=== PATIENT | male | born 1990 | race Caucasian/White ===

== ENCOUNTER 2016-10-08 22:25 | Emergency (ER) | payer SELFPAY ==
--- NOTE | 2016-10-08 23:19 | ED CLINICAL REPORT ---
Clinical Report - Physicians/Mid Levels [facility] [address] [place] [address] 10/08/2016 22:27 Patient: ASHLEY MELTON Time Seen: 22:41; initial patient contact. Arrived- By private vehicle. Historian- patient. HISTORY OF PRESENT ILLNESS Chief Complaint: Chief Complaint- Patient struck his left thumb at work with a hammer about five hours ago. He reports that his hand is throbbing and he was unable to sleep so he came in to be seen.). and Injury to left hand. The injury happened today. The patient sustained a direct blow. Occurred at home. Patient is experiencing moderate pain. No other injury. REVIEW OF SYSTEMS The patient has had swelling, and weakness. All systems otherwise negative, except as recorded above. PAST HISTORY See nurses notes. The patient's dominant hand is the right. Tetanus immunization status is up-to-date. Problems: Tetanus Status. Abscess. Allergic Rhinitis. URI. Immunizations. Sinus Problems. Bipolar Disorder. Additional Surgeries: no known surgeries. Medications: None. Allergies: No Known Drug Allergy. SOCIAL HISTORY Smoker- current status unknown (cigarette). ADDITIONAL NOTES The nursing notes have been reviewed with agreement regarding the chief complaint, HPI, ROS, PMH and patient medications and allergies. PHYSICAL EXAM Vital Signs: 10/08/2016 22:34 BP: 133/76. HR: 74. RR: 20. O2 saturation: 97%. Temp: 98.3 F. Pain level now: 8/10. Have been reviewed. Appearance: Alert. Oriented X3. No acute distress. Extremities: No signs of infection present in the upper extremities. No upper extremity bony tenderness. Left thumb: mild tenderness and swelling of the proximal phalanx, distal phalanx and nail bed. Limited movement secondary to pain (diminished flexion). Neurovascular intact distally. No subungual hematoma. Extremities otherwise negative. Neuro, Vascular and Tendons: Vascular status intact. Sensation intact. Motor intact. Tendon function intact. LABS, X-RAYS, AND EKG X-Rays: Left digit(s) negative. The X-rays were independently viewed by me, interpreted by the radiologist and discussed with the radiologist. Lt UE Digits X-ray: No fracture. The X-rays were independently viewed by me and interpreted contemporaneously by me. Interpretation time: 23:23. PROGRESS AND PROCEDURES Course of Care: Patient is stable. Physical exam findings are improved. Symptoms better. CLINICAL IMPRESSION Crush injury to the left thumb. INSTRUCTIONS Apply ice for 10 minutes three times a day for two days. Elevate affected areas above chest level. Limit use of your hand. No dietary restrictions. OTC Medications: Motrin IB 200 mg (available over the counter): take 3 orally every 8 hours as needed for pain, stiffness or swelling Follow-up: Follow up with your doctor if not better. Understanding of the discharge instructions verbalized by patient. (Electronically signed by Eliz Bianchi PA-C 10/08/2016 23:24)
--- NOTE | 2016-10-08 23:19 | ED NURSING NOTES ---
Clinical Report - Nurses [facility] [address] [place] [address] 10/08/2016 22:27 Patient: ASHLEY MELTON TRIAGE Triage time 22:34 Oct 08 2016. Acuity: LEVEL 4. Chief Complaint: INJURY TO THE LEFT THUMB. SEPSIS SCREEN: Sepsis Screen: negative. Negative (no infection suspected/documented). ALPA COMA SCORE: Alpa Coma Scale: 15- eyes open spontaneously (4); best verbal response- oriented x 4 (5); best motor response- obeys commands (6). --22:37 Isatu Wells 22:34 10/08/16. BP: 133/76. HR: 74. RR: 20. O2 saturation: 97%. Temp: 98.3 F (oral). Pain level now: 12/29. --22:37 Isatu Wells. Weight: 58.9 kg stated. Height/Length: 68 inches Per Patient. BMI: 19.7. --22:34 Isatu Wells. Medications None. --22:36 Isatu Wells. Allergies No Known Drug Allergy. --22:36 Isatu Wells. Medication/allergy information source: the patient. --22:37 Isatu Wells. History Arrived by private vehicle. Historian: patient. Unaccompanied. Primary physician ([facility]). This occurred just prior to arrival. Occurred at work. Mechanism of injury: a single blow (hammer). ( Patient struck his left thumb at work with a hammer about five hours ago. He reports that his hand is throbbing and he was unable to sleep so he came in to be seen.). 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 PAST MEDICAL HX: Tetanus status: up-to-date. SOCIAL HX: Heavy tobacco smoker- less than 1 pack per day. History of drug use: marijuana. No alcohol use. No infectious disease exposure. ABUSE ASSESSMENT: No report of abuse. FALL RISK ASSESSMENT: Fall risk assessment completed. No fall risk identified. NUTRITIONAL RISK ASSESSMENT: The nutritional risk assessment revealed no deficiencies. FUNCTIONAL ASSESSMENT: Functional assessment: no impairments noted. LEARNING NEEDS ASSESSMENT: The learning needs assessment revealed no barriers. SKIN INTEGRITY ASSESSMENT: Skin integrity risk assessment completed. No skin integrity risk identified. --22:37 Isatu Wells. PROBLEMS: Tetanus Status. Abscess. Allergic Rhinitis. URI. Immunizations. Sinus Problems. Bipolar Disorder. --22:36 Isatu Wells. ADDITIONAL SURGERIES: no known surgeries. Interventions ID band on patient. To treatment room. --22:37 Isatu Wells. PHYSICAL ASSESSMENT 22:37 10/08/16. GENERAL / NEURO / PSYCH: Oriented X 4. Alert. Appears in no acute distress. EXTREMITIES: Capillary refill is less than 2 seconds in the extremities. Extremity pulses are within normal limits. Left hand: tenderness, swelling and erythema. SKIN: Skin intact. Skin is warm and dry. --22:38 Isatu Wells. NURSING PROGRESS NOTES 22:10/08/16. Cold pack applied. Extremity elevated. Reassurance given to the patient. Two patient identifiers checked. Call light placed in reach. Side rails up x 1. Bed placed in lowest position. Brakes of bed on. Patient ready for evaluation- chart flagged and ED physician notified. --22:38 Isatu Wells 22:55 10/08/16. ( Patient declining tetanus shot. Patient educated on risks of tetanus.). --22:55 Isatu Wells. DISPOSITION / DISCHARGE 23:10/08/16. Condition at departure: stable. The goals identified in the patient's plan of care were met. No learning barriers present. Discharge instructions provided and reviewed with the patient. Reviewed medication(s) side effects, precautions, dosing and course information. Prescription(s) given to the patient. Reviewed wound care instructions. Patient verbalized understanding. Written instructions provided in Czech. ( Ice and elevate your hand. Follow up with your PCP if not better in one week. Take anti-inflammatory as needed. Patient verbalized understanding and had no additional questions at this time.). The patient was discharged by the physician. He was discharged home and accompanied by machinist job setter. He left the Emergency Department ambulatory and via private vehicle. Patient driving. FALL RISK ASSESSMENT: Fall risk assessment completed. No fall risk identified. --23:26 Isatu Wells 23:24 10/08/16. BP: deferred. HR: deferred. RR: deferred. O2 saturation: deferred. Temp: deferred. Pain level now: 12/29. --23:26 Isatu Wells. Locked/Released at 10/09/2016 0:13 by Isatu Wells,
--- NOTE | 2016-10-08 23:19 | ED ORDER SUMMARY ---
..... Patient: ASHLEY MELTON OrderSheet [facility] VisitID: [id number] [address] [place] [address] 26y, M Registration Date/Time: 10/08/2016 ORDER SHEET Weight: 58.9 kg (stated) Allergies: No Known Drug Allergy GENERAL ORDERS: Finger Left (thumb) (left thumb injury) Urgent (22:41 10/08/2016 Griffin SANTOS) (Ack 22:47 AMcQuoid ER Tech1) (23:01 Alina Gilliland) MEDICATION ORDERS: IV FLUIDS: ORDER SHEET NOTES: [Electronically signed by Eliz Bianchi PA-C (23:24 10/08/2016)] [Electronically signed by Isatu Wells (00:13 10/09/2016)] [Electronically locked/signed by Isatu Wells (00:13 10/09/2016)]
--- NOTE | 2016-10-08 23:19 | ED ORDER SUMMARY ---
..... Patient: ASHLEY MELTON OrderSheet [facility] VisitID: [id number] [address] [place] [address] 26y, M Registration Date/Time: 10/08/2016 ORDER SHEET Weight: 58.9 kg (stated) Allergies: No Known Drug Allergy GENERAL ORDERS: Finger Left (thumb) (left thumb injury) Urgent (22:41 10/08/2016 Griffin SANTOS) (Ack 22:47 AMcQuoid ER Tech1) (23:01 Alina Gilliland) MEDICATION ORDERS: IV FLUIDS: ORDER SHEET NOTES: [Electronically signed by Eliz Bianchi PA-C (23:24 10/08/2016)] [Electronically signed by Isatu Wells (00:13 10/09/2016)] [Electronically locked/signed by Isatu Wells (00:13 10/09/2016)]
--- NOTE | 2016-10-08 23:19 | ED NURSING NOTES ---
Clinical Report - Nurses [facility] [address] [place] [address] 10/08/2016 22:27 Patient: ASHLEY MELTON TRIAGE Triage time 22:34 Oct 08 2016. Acuity: LEVEL 4. Chief Complaint: INJURY TO THE LEFT THUMB. SEPSIS SCREEN: Sepsis Screen: negative. Negative (no infection suspected/documented). ALPA COMA SCORE: Alpa Coma Scale: 15- eyes open spontaneously (4); best verbal response- oriented x 4 (5); best motor response- obeys commands (6). --22:37 Isatu Wells 22:34 10/08/16. BP: 133/76. HR: 74. RR: 20. O2 saturation: 97%. Temp: 98.3 F (oral). Pain level now: 12/29. --22:37 Isatu Wells. Weight: 58.9 kg stated. Height/Length: 68 inches Per Patient. BMI: 19.7. --22:34 Isatu Wells. Medications None. --22:36 Isatu Wells. Allergies No Known Drug Allergy. --22:36 Isatu Wells. Medication/allergy information source: the patient. --22:37 Isatu Wells. History Arrived by private vehicle. Historian: patient. Unaccompanied. [facility] This occurred just prior to arrival. Occurred at work. Mechanism of injury: a single blow (hammer). ( Patient struck his left thumb at work with a hammer about five hours ago. He reports that his hand is throbbing and he was unable to sleep so he came in to be seen.). 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 PAST MEDICAL HX: Tetanus status: up-to-date. SOCIAL HX: Heavy tobacco smoker- less than 1 pack per day. History of drug use: marijuana. No alcohol use. No infectious disease exposure. ABUSE ASSESSMENT: No report of abuse. FALL RISK ASSESSMENT: Fall risk assessment completed. No fall risk identified. NUTRITIONAL RISK ASSESSMENT: The nutritional risk assessment revealed no deficiencies. FUNCTIONAL ASSESSMENT: Functional assessment: no impairments noted. LEARNING NEEDS ASSESSMENT: The learning needs assessment revealed no barriers. SKIN INTEGRITY ASSESSMENT: Skin integrity risk assessment completed. No skin integrity risk identified. --22:37 Isatu Wells. PROBLEMS: Tetanus Status. Abscess. Allergic Rhinitis. URI. Immunizations. Sinus Problems. Bipolar Disorder. --22:36 Isatu Wells. ADDITIONAL SURGERIES: no known surgeries. Interventions ID band on patient. To treatment room. --22:37 Isatu Wells. PHYSICAL ASSESSMENT 22:37 10/08/16. GENERAL / NEURO / PSYCH: Oriented X 4. Alert. Appears in no acute distress. EXTREMITIES: Capillary refill is less than 2 seconds in the extremities. Extremity pulses are within normal limits. Left hand: tenderness, swelling and erythema. SKIN: Skin intact. Skin is warm and dry. --22:38 Isatu Wells. NURSING PROGRESS NOTES 22:10/08/16. Cold pack applied. Extremity elevated. Reassurance given to the patient. Two patient identifiers checked. Call light placed in reach. Side rails up x 1. Bed placed in lowest position. Brakes of bed on. Patient ready for evaluation- chart flagged and ED physician notified. --22:38 Isatu Wells 22:55 10/08/16. ( Patient declining tetanus shot. Patient educated on risks of tetanus.). --22:55 Isatu Wells. DISPOSITION / DISCHARGE 23:10/08/16. Condition at departure: stable. The goals identified in the patient's plan of care were met. No learning barriers present. Discharge instructions provided and reviewed with the patient. Reviewed medication(s) side effects, precautions, dosing and course information. Prescription(s) given to the patient. Reviewed wound care instructions. Patient verbalized understanding. Written instructions provided in Ukrainian. ( Ice and elevate your hand. Follow up with your PCP if not better in one week. Take anti-inflammatory as needed. Patient verbalized understanding and had no additional questions at this time.). The patient was discharged by the physician. He was discharged home and accompanied by sand operator. He left the Emergency Department ambulatory and via private vehicle. Patient driving. FALL RISK ASSESSMENT: Fall risk assessment completed. No fall risk identified. --23:26 Isatu Wells 23:24 10/08/16. BP: deferred. HR: deferred. RR: deferred. O2 saturation: deferred. Temp: deferred. Pain level now: 12/29. --23:26 Isatu Wells. Locked/Released at 10/09/2016 0:13 by Isatu Wells,
--- NOTE | 2016-10-08 23:19 | ED CLINICAL REPORT ---
Clinical Report - Physicians/Mid Levels [facility] [address] [place] [address] 10/08/2016 22:27 Patient: ASHLEY MELTON Time Seen: 22:41; initial patient contact. Arrived- By private vehicle. Historian- patient. HISTORY OF PRESENT ILLNESS Chief Complaint: Chief Complaint- Patient struck his left thumb at work with a hammer about five hours ago. He reports that his hand is throbbing and he was unable to sleep so he came in to be seen.). and Injury to left hand. The injury happened today. The patient sustained a direct blow. Occurred at home. Patient is experiencing moderate pain. No other injury. REVIEW OF SYSTEMS The patient has had swelling, and weakness. All systems otherwise negative, except as recorded above. PAST HISTORY See nurses notes. The patient's dominant hand is the right. Tetanus immunization status is up-to-date. Problems: Tetanus Status. Abscess. Allergic Rhinitis. URI. Immunizations. Sinus Problems. Bipolar Disorder. Additional Surgeries: no known surgeries. Medications: None. Allergies: No Known Drug Allergy. SOCIAL HISTORY Smoker- current status unknown (cigarette). ADDITIONAL NOTES The nursing notes have been reviewed with agreement regarding the chief complaint, HPI, ROS, PMH and patient medications and allergies. PHYSICAL EXAM Vital Signs: 10/08/2016 22:34 BP: 133/76. HR: 74. RR: 20. O2 saturation: 97%. Temp: 98.3 F. Pain level now: 8/10. Have been reviewed. Appearance: Alert. Oriented X3. No acute distress. Extremities: No signs of infection present in the upper extremities. No upper extremity bony tenderness. Left thumb: mild tenderness and swelling of the proximal phalanx, distal phalanx and nail bed. Limited movement secondary to pain (diminished flexion). Neurovascular intact distally. No subungual hematoma. Extremities otherwise negative. Neuro, Vascular and Tendons: Vascular status intact. Sensation intact. Motor intact. Tendon function intact. LABS, X-RAYS, AND EKG X-Rays: Left digit(s) negative. The X-rays were independently viewed by me, interpreted by the radiologist and discussed with the radiologist. Lt UE Digits X-ray: No fracture. The X-rays were independently viewed by me and interpreted contemporaneously by me. Interpretation time: 23:23. PROGRESS AND PROCEDURES Course of Care: Patient is stable. Physical exam findings are improved. Symptoms better. CLINICAL IMPRESSION Crush injury to the left thumb. INSTRUCTIONS Apply ice for 10 minutes three times a day for two days. Elevate affected areas above chest level. Limit use of your hand. No dietary restrictions. OTC Medications: Motrin IB 200 mg (available over the counter): take 3 orally every 8 hours as needed for pain, stiffness or swelling Follow-up: Follow up with your doctor if not better. Understanding of the discharge instructions verbalized by patient. (Electronically signed by Eliz Bianchi PA-C 10/08/2016 23:24)
--- NOTE | 2016-10-09 00:13 | ED MED RECONCILIATION SUMMARY ---
Patient: ASHLEY MELTON Medication Reconciliation Report [facility] VisitID: [id number] [address] [place] [address] 26y, M Registration Date/Time: 10/08/2016 Weight: 58.9 kg Height/Length: 68 in. BMI: 19.7 ALLERGIES: No Known Drug Allergy The patient's Home Medications are listed below: NONE. The source(s) of the original Home Medication information: patient The following Medications were given to the patient in the Emergency Department: None. The following Medications were prescribed to the patient: Motrin IB 200 mg (available over the counter): take 3 orally every 8 hours as needed for pain, stiffness or swelling -- Eliz Bianchi PA-C
--- NOTE | 2016-10-09 00:13 | ED MAR SUMMARY ---
..... Medication Administration Record [facility] [address] [place], [place] [id number] Patient: ASHLEY MELTON Hallie Visit ID: [id number] 26y, M Weight: 58.9 kg Height/Length: 68 in BMI: 19.7 ALLERGIES: No Known Drug Allergy
--- NOTE | 2016-10-09 00:13 | ED MAR SUMMARY ---
..... Medication Administration Record [facility] [address] [place], [place] [id number] Patient: ASHLEY MELTON Hallie Visit ID: [id number] 26y, M Weight: 58.9 kg Height/Length: 68 in BMI: 19.7 ALLERGIES: No Known Drug Allergy
--- NOTE | 2016-10-09 00:13 | ED MED RECONCILIATION SUMMARY ---
Patient: ASHLEY MELTON Medication Reconciliation Report [facility] VisitID: [id number] [address] [place] [address] 26y, M Registration Date/Time: 10/08/2016 Weight: 58.9 kg Height/Length: 68 in. BMI: 19.7 ALLERGIES: No Known Drug Allergy The patient's Home Medications are listed below: NONE. The source(s) of the original Home Medication information: patient The following Medications were given to the patient in the Emergency Department: None. The following Medications were prescribed to the patient: Motrin IB 200 mg (available over the counter): take 3 orally every 8 hours as needed for pain, stiffness or swelling -- Eliz Bianchi PA-C
--- NOTE | 2016-10-09 00:13 | ED DISCHARGE INSTRUCTIONS ---
Patient: ASHLEY MELTON General Instructions [facility] VisitID: [id number] [address] [place] [address] 26y, M Registration Date/Time: 10/08/2016 Crush injury to the left thumb. INSTRUCTIONS Apply ice for 10 minutes three times a day for two days. Elevate affected areas above chest level. Limit use of your hand. No dietary restrictions. OTC Medications: Motrin IB 200 mg (available over the counter): take 3 orally every 8 hours as needed for pain, stiffness or swelling Follow-up: Follow up with your doctor if not better. Understanding of the discharge instructions verbalized by patient. Limit use of your hand. (Electronically signed by Eliz Bianchi PA-C 10/08/2016 23:24)
--- NOTE | 2016-10-09 00:13 | ED DISCHARGE INSTRUCTIONS ---
Patient: ASHLEY MELTON General Instructions [facility] VisitID: [id number] [address] [place] [address] 26y, M Registration Date/Time: 10/08/2016 Crush injury to the left thumb. INSTRUCTIONS Apply ice for 10 minutes three times a day for two days. Elevate affected areas above chest level. Limit use of your hand. No dietary restrictions. OTC Medications: Motrin IB 200 mg (available over the counter): take 3 orally every 8 hours as needed for pain, stiffness or swelling Follow-up: Follow up with your doctor if not better. Understanding of the discharge instructions verbalized by patient. Limit use of your hand. (Electronically signed by Eliz Bianchi PA-C 10/08/2016 23:24)
--- NOTE | 2016-10-09 05:24 | DIAGNOSTIC IMAGING REPORT ---
PROCEDURE: XR FINGER - LEFT (thumb) INDICATION: TRAUMA/INJURY TECHNIQUE: Three views. COMPARISON: None. FINDINGS: Osseous structures and joint spaces are normal. IMPRESSION: 1. Normal left thumb.
--- NOTE | 2016-10-09 05:24 | DIAGNOSTIC IMAGING REPORT ---
PROCEDURE: XR FINGER - LEFT (thumb) INDICATION: TRAUMA/INJURY TECHNIQUE: Three views. COMPARISON: None. FINDINGS: Osseous structures and joint spaces are normal. IMPRESSION: 1. Normal left thumb.
== END 2016-10-08 23:00 | disposition home or self-care (01) ==
LOC: ED SRH 22:25
DX: S67.02XA Crushing injury of left thumb, initial encounter (principal); W22.8XXA Striking against or struck by other objects, initial encounter; Y93.9 Activity, unspecified; Y92.9 Unspecified place or not applicable; Y99.0 Civilian activity done for income or pay; F17.210 Nicotine dependence, cigarettes, uncomplicated